=== PATIENT | male | born 1940 | race Caucasian/White ===

== ENCOUNTER 2021-11-11 20:38 | Inpatient (IN) | payer MEDICARE, BC ==
[~2021-11-11] VITALS: Ht 185.4 cm; Wt 87.5 kg
[2021-11-11 20:47] VITALS: BP 135/68
[2021-11-11] MEDS ORDERED: COZAAR 25 MG TA25 M1 PO (20:52)
[2021-11-11] MEDS ORDERED: AMARYL4 MG PO (20:52)
[2021-11-11] MEDS ORDERED: PIOGLITAZONE15 MG (20:53)
[2021-11-11] MEDS ORDERED: NORVASC10 MG PO (20:53)
[2021-11-11] MEDS ORDERED: DONEPEZIL HCL10 M1 PO (20:53)
[2021-11-11] MEDS ORDERED: GLUCOPHAGE XR750 MG PO (20:53)
[2021-11-11] MEDS ORDERED: BREZTRI AEROS10.7 GM INH (20:54)
[2021-11-11 21:10] LABS: ABSOLUTE LYMPHOCYTES 1.5 thou/uL (0.8-5.3); ABSOLUTE MONOCYTES 0.3 thou/uL (0.0-1.2); ABSOLUTE NEUTROPHILS 7.9 thou/uL (1.6-8.1); BASOPHILS 0.5 %; HEMOGLOBIN 13.7 gm/dL (14.0-18.0); LYMPHOCYTES 14.9 %; MCH 33.4 pg (26.0-34.0); MCHC 33.4 g/dL (28.0-37.0); MCV 100.1 fL (80.0-100.0); MONOCYTES 3.5 %; MPV 9.4 fl. (7.2-11.1); NUCLEATED RBCS 0 /100WBC; PLATELET COUNT* 148 thou/uL (150-400); POLYS 81.1 %; RDW-CV 12.6 % (10.5-14.5); WBC 9.8 thou/uL (4.0-11.0)
[2021-11-11 21:18] LABS: CALCIUM 8.1 mg/dL (8.5-10.1); POTASSIUM 4.6 mmol/L (3.5-5.1)
[2021-11-11 21:34] LABS: ALBUMIN 3.3 g/dL (3.4-5.0); MAGNESIUM 2.1 mg/dL (1.8-2.4); TOTAL BILIRUBIN 0.6 mg/dL (<0.1-1.0); TOTAL PROTEIN 7.3 g/dL (6.4-8.2)
[2021-11-11 21:55] LABS: INFLUENZA A ANTIGEN Negative (Negative); INFLUENZA B ANTIGEN Negative (Negative)
[2021-11-11 22:12] LABS: BE -6.6 mmol/L (-2 to +3); PCO2 31.3 mmHg (35.0-45.0); PO2 64.2 mmHg (75.0-100.0); pH 7.367 (7.340-7.450)
[2021-11-11 23:10] VITALS: BP 120/63
[2021-11-11 23:14] VITALS: BP 110/60
--- NOTE | 2021-11-12 03:01 | NUR ---
PT ADMITTED FROM ED TO ROOM 112 APPROX 2320. REPORT FROM THERESA PINEDA OBTAINED. PT SETTLED, VSS. HE IS UNABLE TO ANSWER MOST QUESTIONS HE IS ALERT TO SELF AND PLACE ONLY. CALLED DAUGHTER DIEGO WHO IS DPOA FOR INFO ON ADMISSION. DAUGHTER STATES PT IS AO X2 AND DOES BASIC TASKS WITH PROMPTING. SHE STATES THE HOUSEHOLD HAS COVID AND HE HAD DONE WELL UNTIL THIS AM WHEN HE WAS VERY WEAK AND SLID FROM BED TO FLOOR, HIS SAT WAS IN THE MID 80s PER HER HOME OXIMETRY. EMS WAS CALLED AND PT WAS BROUGHT TO ED. DAUGHTER STATES PT IS DNR AND WILL TRY TO GET A COPY TO THE [facility]. SHE REPORTS PT BEING INCONTINENT OF B/B X DAYS WITH SOME DIARRHEA. HE HAS GOOD APPETITE AND EATS MOST ANY FOOD.HE HAS NOT HAD A COUGH AND DOES NOT REQUIRE OXYGEN AT HOME. DIEGO REPORTS PT SEES PULM AT [facility](DR MCKENNA) AND HAS A SPOT THEY HAVE BEEN WATCHING AND HE IS DUE FOR XRAY IN NOV. PT STARTED ON 4L NC AND SOON AFTER BEING ON THE FLOOR OXYGEN NEED INCREASED TO 11L HFNC TO KEEP SAT> 92 PER ORDER. PT IS ASSIST X1 TO STAND AND USING URINAL WITH FLUIDS PER ORDER. PT SKIN IS INTACT WITH AN ABRAISION TO LT KNEE. THE L KNEE FROM FALL AT HOME. BED ALARM ON FOR PT SAFETY, CALL LIGHT INSTRUCTIONS EXPLAINED WITH PT.
[2021-11-12 04:00] VITALS: BP 113/73; BP 136/76
--- NOTE | 2021-11-12 07:42 | NUR ---
PT AO X2 PERSON AND PLACE. ASSIST X1 TO USE URINAL. PT INCONTINENT AT TIMES,HAS BRIEF ON. THIS AM PT TOOK MONITOR OFF AND IV OUT. PT REEDUCATED ABOUT EQUIPMENT AND TO KEEP IT ON, BED ALARM ON FOR PT SAFETY.
[2021-11-12 09:45] VITALS: BP 132/70
--- NOTE | 2021-11-12 10:23 | EKG ---
[place] [address] ELECTROCARDIOGRAM REPORT Name: RANDOLPH CHANG Room: [address] ADM IN ..#: [id number] Admission: 11/11/21 Attend Phys: Oliver Castillo, Discharge: Date of : 36 Date of Service: 11/11/212038 Report #: [id number] THIS REPORT FOR: //name// [facility] ED Test Date: 2021-11-11 Test Time: 20:39:05 Pat Name: RANDOLPH CHANG Department: Room: [facility] Gender: M Heavy Cleaner: DRISS : 1940 Requested By: Brissa Michelle Order Number: [id number] MD: Domingo العراقي Measurements Intervals Mcdonough Rate: 97 P: -28 OK: 186 QRS: -55 QRSD: 147 T: -7 QT: 396 QTc: 503 Interpretive Statements Sinus rhythm RBBB and LAFB Baseline wander in lead(s) V1 No previous ECG available for comparison Electronically Signed On 11-12-2021 10:23:03 DRIVING INSTRUCTOR by Domingo العراقي [email or web address] <ELECTRONICALLY SIGNED> By: Domingo العراقي MD, FACC 11/12/21 1023 38 38 Domingo العراقي MD, [facility] /EPI
[2021-11-12 12:00] VITALS: BP 136/78
--- NOTE | 2021-11-12 13:49 | NUR ---
CM ASSESSMENT ASSESSMENT COMPLETED VIA PHONE WITH PT'S DAUGHTER (DIEGO SOSA - [phone]). PT LIVES WITH DIEGO AND DIEGO'S . PT HAS RESIDED WITH THEM SINCE 01/12. PT DOES NOT TYPICALLY USE DME, BUT HAS BEEN USING A WHEELCHAIR/LIFT CHAIR THE LAST FEW DAYS BEFORE HOSPITALIZATION DUE TO INCREASING WEAKNESS. PT IND WITH DRESSING, REQUIRES VERBAL PROMPTING WITH HYGIENE, AND DIEGO MANAGES PT MEDS. THERE ARE TWO STEPS TO ENTER THE HOME AND PT TYPICALLY HAS NO PROBLEM MANAGING STEPS. 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 CM TO FOLLOW FOR DC NEEDS. PT AND FAMILY SEEKING REFERRAL TO SKILLED UPON MEDICAL CLEARANCE.
[2021-11-12 20:00] VITALS: BP 127/73
[2021-11-13] VITALS (8 sets, daily range): BP systolic 81–143; BP diastolic 48–85
--- NOTE | 2021-11-13 05:22 | NUR ---
ASSUMED CARE OF PT AFTER REPORT AT 1930. PT A&OX1. RESTLESS-REMOVING NRB MASK-O2 SAT WILL DROP TO 70'S-80'S. VSS. PHYSICAL ASSESSMENT COMPLETED AND CHARTED. PT HFNC 15L+ NRBM 15L. PT TRACING ST/BBB ON TELE. PT WITH EPISODES OF INCONTINENT BLADDER. FALL PRECAUTIONS IN PLACE.
[2021-11-13 11:18] LABS: HEMATOCRIT 42.8 % (42.0-52.0); HEMOGLOBIN 14.7 gm/dL (14.0-18.0); MCH 33.4 pg (26.0-34.0); MCHC 34.3 g/dL (28.0-37.0); MCV 97.3 fL (80.0-100.0); MPV 10.5 fl. (7.2-11.1); NUCLEATED RBCS 0 /100WBC; PLATELET COUNT* 155 thou/uL (150-400); RDW-CV 12.1 % (10.5-14.5); WBC 17.3 thou/uL (4.0-11.0)
[2021-11-13 11:40] LABS: APTT 32.2 Seconds (25.0-31.3)
[2021-11-13 11:58] LABS: ALBUMIN 2.9 g/dL (3.4-5.0); CALCIUM 8.5 mg/dL (8.5-10.1); CREATININE 3.2 mg/dL (0.6-1.3); MAGNESIUM 2.3 mg/dL (1.8-2.4); PHOSPHORUS* 3.4 mg/dL (2.5-4.9); TOTAL BILIRUBIN 0.6 mg/dL (<0.1-1.0); TOTAL PROTEIN 7.3 g/dL (6.4-8.2)
[2021-11-13 11:59] LABS: ABSOLUTE LYMPHOCYTES 1.6 thou/uL (0.8-5.3); ABSOLUTE NEUTROPHILS 14.7 thou/uL (1.6-8.1)
[2021-11-13 12:02] LABS: PLATELET ESTIMATE ADEQUATE
--- NOTE | 2021-11-13 12:09 | 2DMMODE ---
[place] [address] 2 D/M-MODE ECHOCARDIOGRAM Name: RANDOLPH CHANG Room: [address] IN [facility]#: [id number] Admission: 11/11/21 Attend Phys: Oliver Castillo, Discharge: Date of : 36 Date of Service: 11/13/21 1209 Report #: [id number] THIS REPORT FOR: cc: FAM - No family physician/PCP FAM - No family physician/PCP Jean Pierre Dubon MD [facility] ~ APPROVED REPORT Study performed: 11/13/2021 11:05:27 EXAM: Comprehensive 2D, Doppler, and color-flow Echocardiogram Patient Location: In-Patient Room #: [facility] Status: routine BSA: 2.11 HR: 105 bpm BP: 130/75 mmHg Rhythm: NSR Other Information Study Quality: Good Indications CVA/TIA Echo Enhancing Agent Indication: Rule out Shunt Agent(s) / Amount(s) Used: Agitated Saline 10 cc 2D Dimensions IVSd: 11.62 (7-11mm) LVOT Diam: 22.14 (18-24mm) LVDd: 41.91 mm PWd: 12.03 (7-11mm) Ascending Ao: 36.24 (22-36mm) LVDs: 26.65 (25-40mm) Aortic Root: 30.91 mm Volumes Left Atrial Volume (Systole) LA ESV Index: 12.50 mL/m2 Aortic Valve AoV Peak Delano.: 0.95 m/s AO Peak Gr.: 3.64 mmHg LVOT Max P.05 mmHg AO Mean Gr.: 2.37 mmHg LVOT [place]97 [place] [address] 2 D/M-MODE ECHOCARDIOGRAM Name: RANDOLPH CHANG Room: [address] IN M.R.#: [id number] Admission: 11/11/21 Attend Phys: Oliver Castillo, Discharge: Date of : 36 Date of Service: 11/13/21 1209 Report #: [id number] LVOT Max V: 0.87 m/s AO V2 VTI: 14.40 cm LVOT Mean V: 0.67 m/s AZAR (VTI): 3.75 cm2 LVOT V1 VTI: 14.01 cm Mitral Valve E/A Ratio: 0.51 MV Decel. Time: 83.90 ms MV E Max Delano.: 0.60 m/s MV PHT: 24.33 ms MVA (PHT): 9.04 cm2 TDI E/Lateral E': 7.50 E/Medial E': 8.57 Medial E' Delano.: 0.07 m/s Lateral E' Delano.: 0.08 m/s Pulmonary Valve PV Peak Delano.: 0.82 m/s PV Peak Gr.: 2.68 mmHg Tricuspid Valve RAP Estimate: 5.00 mmHg TR Peak Gr.: 18.72 mmHg RVSP: 23.00 mmHg PA Pressure: 23.00 mmHg Left Ventricle The left ventricle is normal size. There is normal LV segmental wall motion. Mild concentric left ventricular hypertrophy. Left ventricular systolic function is normal. LVEF is 55-60%. Grade I - abnormal relaxation pattern. Right Ventricle The right ventricle is normal size. The right ventricular systolic function is normal. Atria The left atrium size is normal. The interatrial septum is intact with no evidence for an atrial septal defect. The right atrium size is normal. Aortic Valve Mild aortic valve sclerosis. No aortic regurgitation is present. There is no aortic valvular stenosis. Mitral Valve There is mitral annular calcification. There is no mitral valve regurgitation noted. No evidence [place] [address] 2 D/M-MODE ECHOCARDIOGRAM Name: RANDOLPH CHANG Room: [address] [place] ..#: [id number] Admission: 11/11/21 Attend Phys: Oliver Castillo, Discharge: Date of : 36 Date of Service: 11/13/21 1209 Report #: [id number] Tricuspid Valve The tricuspid valve is normal in structure. Mild tricuspid regurgitation. No pulmonary hypertension. Pulmonic Valve Pulmonic valve is not well visualized. Great Vessels The aortic root is normal in size. IVC is not well visualized. Pericardium There is no pericardial effusion. <Conclusion> The left ventricle is normal size. Mild concentric left ventricular hypertrophy. Left ventricular systolic function is normal. LVEF is 55-60%. Grade I - abnormal relaxation pattern. There is normal LV segmental wall motion. Mild aortic valve sclerosis. There is no aortic valvular stenosis. Mild tricuspid regurgitation. No pulmonary hypertension. The interatrial septum is intact with no evidence for an atrial septal defect. <ELECTRONICALLY SIGNED> By: Jean Pierre Dubon MD, FACC 11/13/21 120 08 08 Jean Pierre Dubon MD, FACC /INF
--- NOTE | 2021-11-13 16:04 | NUR ---
CM FOLLOWUP PT NOT MED CLEAR AND ON BIPAP. PT PENDING PT/OT EVALS PT WILL NEED REFERRAL FOR SKILLED UPON DC. PT'S FAMILY SEEKING LINKAGE TO [facility] ONCE MED CLEAR. CM TO FOLLOW.
[2021-11-14 00:35] VITALS: BP 107/62
[2021-11-14 04:46] VITALS: BP 106/64
--- NOTE | 2021-11-14 05:48 | NUR ---
ASSUMED CARE OF PT AFTER REPORT AT 1930. PT A&0X1. VSS. PHYSICAL ASSESSMENT COMPLETED AND CHARTED. PT ON CONT BIPAP 100%-O2 SAT 88-93%. PT TRACING SR/ST/BBB ON TELE. VERIFIED TO PTS DPOA-DAUGHTER ROMAIN REGARDING STATUS AND THEY WANT DNR/DNI STATUS. WILL TRY TO BRING PAPERS TODAY-DR CONTRERAS MADE AWARE. TRANSFUSED 1 UNIT OF PLASMA. FALL PRECAUTIONS IN PLACE. CALL LIGHT WITHIN REACH.
[2021-11-14 08:00] VITALS: BP 142/75
[2021-11-14 13:12] VITALS: BP 112/68
--- NOTE | 2021-11-14 13:31 | NUR ---
The patient is alert to self. The patient takes his BIPAP and leads off. SR/ST on monitor. Incontient of bladder. Repostioned often. Fall precautions in place. Call light within reach. Zoila (daughter) contacted by and also spoke with this nurse and updated.
--- NOTE | 2021-11-14 14:15 | NUR ---
16 fr inserted the patient tolerated well. 600 ml dark norberto urine drained. Specimen attained.
[2021-11-14 14:22] LABS: URINE BILIRUBIN NEGATIVE (Negative); URINE BLOOD 1+ (Negative); URINE CLARITY CLEAR; URINE COLOR YELLOW; URINE GLUCOSE-RANDOM TRACE (Negative); URINE KETONES NEGATIVE (Negative); URINE LEUKOCYTES-REFLEX NEGATIVE (Negative); URINE NITRITE-REFLEX NEGATIVE (Negative); URINE PROTEIN 2+ (Negative); URINE SPECIFIC GRAVITY 1.025 (1.005-1.030); URINE UROBILINOGEN 0.2 E.U./dl (0.2-1.0)
[2021-11-14 14:32] LABS: BACTERIA-REFLEX 1-9 Few /HPF (None Seen); CASTS None Seen /LPF (None Seen); CRYSTALS None Seen /LPF (None Seen); SQUAMOUS NONE SEEN /LPF (0-3)
[2021-11-14 14:33] LABS: URINE RBC 0-2 Rare /HPF (0-2); URINE WBC-REFLEX None Seen /HPF (0-5)
[2021-11-14 16:00] VITALS: BP 131/78
[2021-11-14 20:00] VITALS: BP 118/65
[2021-11-15] VITALS: BP 113/67
--- NOTE | 2021-11-15 01:00 | NUR ---
ASSUMED CARE OF PT AFTER REPORT AT 1930. PT A&OX1. RESTLESS. 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 VSS. PHYSICAL ASSESSMENT COMPLETED AND CHARTED. PT ON CONTINUOUS BIPAP 100%. PT TRACING SR/BBB ON TELE. PT WITH MCCARTNEY TO DEPENDENT DRAIN. PT WITH EPISODE OF INCONTINENT BOWEL. FALL PRECAUTIONS IN PLACE. CALL LIGHT WITHIN REACH.
[2021-11-15 04:01] VITALS: BP 129/63
--- NOTE | 2021-11-15 07:25 | NUR ---
CHANGE OF SHIFT REPORT GIVEN PATIENT SEEN AT BEDSIDE, IN BED ASLEEP ASSUMED PATIENT CARE
[2021-11-15 08:00] VITALS: BP 100/76
[2021-11-15 12:00] VITALS: BP 113/71
[2021-11-15 16:00] VITALS: BP 120/67
[2021-11-15 20:00] VITALS: BP 137/76
[2021-11-16 00:53] VITALS: BP 160/98
[2021-11-16 04:44] VITALS: BP 140/94
[2021-11-16 05:09] LABS: HEMATOCRIT 44.8 % (42.0-52.0); MCH 32.8 pg (26.0-34.0); MCHC 33.5 g/dL (28.0-37.0); MCV 97.9 fL (80.0-100.0); MPV 9.5 fl. (7.2-11.1); RBC 4.57 mil/uL (4.50-6.00); RDW-CV 12.6 % (10.5-14.5); WBC 25.2 thou/uL (4.0-11.0)
[2021-11-16 05:44] LABS: CALCIUM 9.1 mg/dL (8.5-10.1); POTASSIUM 4.8 mmol/L (3.5-5.1)
--- NOTE | 2021-11-16 05:44 | NUR ---
ASSUMED CARE OF PT AFTER REPORT AT 1930. PT A&OX1. VSS. PHYSICAL ASSESSMENT COMPLETED AND CHARTED. PT ON CONT BIPAP 100%. PT TRACING SR/BBB ON TELE. PT WITH MCCARTNEY TO DEPENDENT DRAIN. FALL PRECAUTIONS IN PLACE. CALL LIGHT WITHIN REACH.
[2021-11-16 05:45] LABS: CREATININE 4.7 mg/dL (0.6-1.3)
--- NOTE | 2021-11-16 07:10 | NUR ---
CHANGE OF SHIFT REPORT GIVEN PATIENT SEEN AT BEDSIDE, IN BED ASLEEP ASSUMED PATIENT CARE
[2021-11-16 12:48] VITALS: BP 129/75
[2021-11-16 14:21] LABS: CALCIUM 8.9 mg/dL (8.5-10.1); CREATININE 4.8 mg/dL (0.6-1.3); POTASSIUM 5.2 mmol/L (3.5-5.1)
[2021-11-16 16:54] VITALS: BP 134/79
[2021-11-16 18:26] LABS: URINE BILIRUBIN NEGATIVE (Negative); URINE BLOOD 2+ (Negative); URINE CLARITY CLEAR; URINE COLOR YELLOW; URINE GLUCOSE-RANDOM NEGATIVE (Negative); URINE KETONES NEGATIVE (Negative); URINE LEUKOCYTES NEGATIVE (Negative); URINE NITRITE NEGATIVE (Negative); URINE PROTEIN 1+ (Negative); URINE UROBILINOGEN 0.2 E.U./dl (0.2-1.0)
[2021-11-16 18:51] LABS: BACTERIA 1-9 Few /HPF (None Seen); CASTS None Seen /LPF (None Seen); MUCUS 0-3 Light strn/LPF (None Seen); SQUAMOUS 4-10 Moderate /LPF (0-3); URIC ACID CRYSTALS >10 Many /LPF (None Seen); URINE WBC 0-5 Rare /HPF (0-5); YEAST Present (None Seen)
[2021-11-16 20:00] VITALS: BP 141/68
[2021-11-17 02:06] VITALS: BP 141/80
--- NOTE | 2021-11-17 04:47 | NUR ---
SPO2 LOW ON BIPAP SETTINGS, EPAP INCREASED TO 10, IPAP INCREASED TO REACH GRADIENT OF 4 AT 14. SPO2 NOW 93%. PT'S BREEATHING IS LABORED, USING ACCESSORY MUSCLES.
[2021-11-17 04:49] LABS: ABSOLUTE MONOCYTES 1.6 thou/uL (0.0-1.2); BASOPHILS 0.1 %; HEMATOCRIT 44.5 % (42.0-52.0); HEMOGLOBIN 14.8 gm/dL (14.0-18.0); LYMPHOCYTES 4.1 %; MCH 32.6 pg (26.0-34.0); MCHC 33.3 g/dL (28.0-37.0); MONOCYTES 6.4 %; MPV 9.6 fl. (7.2-11.1); NUCLEATED RBCS 0 /100WBC; PLATELET COUNT* 296 thou/uL (150-400); POLYS 89.4 %; RBC 4.55 mil/uL (4.50-6.00); RDW-CV 12.7 % (10.5-14.5); WBC 24.6 thou/uL (4.0-11.0)
[2021-11-17 05:29] LABS: ALBUMIN 2.6 g/dL (3.4-5.0); CREATININE 4.7 mg/dL (0.6-1.3); MAGNESIUM 2.8 mg/dL (1.8-2.4); TOTAL BILIRUBIN 0.6 mg/dL (<0.1-1.0); TOTAL PROTEIN 6.9 g/dL (6.4-8.2)
[2021-11-17 06:16] VITALS: BP 128/71
--- NOTE | 2021-11-17 07:50 | NUR ---
ASSUMED CARE OF PT AFTER REPORT AT 1930. PT A&OX1. VSS. PHYSICAL ASSESSMENT COMPLETED AND CHARTED. PT ON CONT BIPAP. PT TRACING SR/ST/BBB ON TELE. FALL PRECAUTIONS IN PLACE. CALL LIGHT WITHIN REACH.
[2021-11-17 08:00] VITALS: BP 122/71
[2021-11-17 12:07] VITALS: BP 108/63
[2021-11-17 12:07] LABS: CALCIUM 8.8 mg/dL (8.5-10.1); CREATININE 5.2 mg/dL (0.6-1.3)
--- NOTE | 2021-11-17 14:53 | NUR ---
CM FOLLOWUP PT NOT MED CLEAR. PT ON MAX BIPAP. PT FAMILY COMING IN TO DISCUSS END OF LIFE CARE. CM TO FOLLOW.
--- NOTE | 2021-11-17 19:35 | NUR ---
ASSUMED PT CARE AT 0730, PT NOT RESPONDING TO ME AT THIS TIME, ONLY MOVED LT ARM SLIGHTLY WHEN I GAVE IV STEROIDS TODAY. I CALLED DAUGHTER, ROMAIN, THIS MORNING AND EXPLAINED THAT PT WAS MAXED OUT ON BIPAP AND ONLY SATTING 86-88%, DR JASON NOTIFIED WELL AND APPROVAL RECEIVED FOR PT'S 3 DAUGHTERS TO COME SEE PT R/T STATUS. WHEN FAMILY WAS ALL IN ROOM, THEY WORKED W/ DR JASON AND DECIDED TO MAKE PT COMFORT CARE, BIPAP TAKEN OFF AND PT PLACED ON 4L NC AND AT APPROX 1315 W/ FAMILY AT BEDSIDE. VERIFIED TIME OF WITH EDWIN HUNTER AND DR JASON NOTIFIED AT THIS TIME. PACKET COMPLETE AND IN CHART, PT PLACED IN BODY BAG WHEN FAMILY LEFT AND BODY SENT W/ DENTURES AND A GOLD RING BY TRANSPORT TO HOME PICKED OUT BY FAMILY AT APPROX 1745
== END 2021-11-17 17:45 | DRG 871 ==
LOC: M.ERS 20:38 → M.ORTHSURG 21:58 → M.TBA-ER 21:58 → M.ORTHSURG 22:51
PROVIDERS: Emergency Medicine; Internal Medicine; ADMIT Internal Medicine; ATTEND Internal Medicine
PROC: XW033E5 Introduction of Remdesivir Anti-infective into Peripheral Vein, Percutaneous Approach, New Technology Group 5 (ICD-10-PCS; 2021-11-11)
PROC: 5A0935A Assistance with Respiratory Ventilation, Less than 24 Consecutive Hours, High Flow/Velocity Cannula (ICD-10-PCS; 2021-11-12)
PROC: XW13325 Transfusion of Convalescent Plasma (Nonautologous) into Peripheral Vein, Percutaneous Approach, New Technology Group 5 (ICD-10-PCS; principal; 2021-11-13)
PROC: 5A09557 Assistance with Respiratory Ventilation, Greater than 96 Consecutive Hours, Continuous Positive Airway Pressure (ICD-10-PCS; 2021-11-13)
DX: A41.89 Other specified sepsis (principal); U07.1 COVID-19; J96.01 Acute respiratory failure with hypoxia; J12.82 Pneumonia due to coronavirus disease 2019; N17.9 Acute kidney failure, unspecified; E87.0 Hyperosmolality and hypernatremia; I10 Essential (primary) hypertension; E11.65 Type 2 diabetes mellitus with hyperglycemia; Z79.4 Long term (current) use of insulin; F03.90 Unspecified dementia, unspecified severity, without behavioral disturbance, psychotic disturbance, mood disturbance, and anxiety; Z66 Do not resuscitate